=== PATIENT | male | born 1955 | race Caucasian/White ===

== ENCOUNTER 2024-07-06 14:53 | Observation (INO) | payer MEDICARE ==
[2024-07-06] MEDS ORDERED: Sodium Chloride 0.9% 10 ML Syringe FLUSH PRN (15:05)
[2024-07-06 15:09] LABS: BASOPHILS ABSOLUTE AUTO 0.01 K/uL (0.00-0.20); BASOPHILS PERCENT AUTO 0.2 % (0.0-2.0); EOSINOPHILS ABSOLUTE AUTO 0.03 K/uL (0.00-0.50); EOSINOPHILS PERCENT AUTO 0.7 % (0.0-5.0); HEMATOCRIT 41.8 % (39.0-49.0); HEMOGLOBIN 14.4 g/dL (13.1-16.8); IMMATURE GRAN ABSOLUTE AUTO 0.01 10^3/uL (0.00-0.04); IMMATURE GRAN PERCENT AUTO 0.2 % (0.0-0.4); LYMPHOCYTES ABSOLUTE AUTO 1.32 K/uL (0.50-3.50); LYMPHOCYTES PERCENT AUTO 30.9 % (10.0-50.0); MEAN CORPUSCULAR HEMOGLOBIN 31.9 pg (28.2-33.3); MEAN CORPUSCULAR HGB CONC 34.4 g/dL (31.7-36.0); MEAN CORPUSCULAR VOLUME 92.7 fL (84.0-98.0); MONOCYTES ABSOLUTE AUTO 0.56 K/uL (0.00-1.00); MONOCYTES PERCENT AUTO 13.1 % (2.0-14.0); NEUTROPHILS ABSOLUTE AUTO 2.34 K/uL (1.40-7.00); NEUTROPHILS PERCENT AUTO 54.9 % (45.0-80.0); PLATELET COUNT,PLT 113 K/uL (150-350); RED BLOOD CELL COUNT 4.51 M/uL (4.33-5.41); RED CELL DISTRIBUTION WIDTH 12.6 % (11.2-14.1); WHITE BLOOD CELL COUNT,WBC 4.3 K/uL (4.0-10.2)
[2024-07-06 15:36] LABS: ALBUMIN 3.5 g/dL (3.4-5.0); ANION GAP 16.3 meq/L (7-15); BILIRUBIN TOTAL 0.4 mg/dL (0.2-1.0); CALCIUM 8.1 mg/dL (8.5-10.1); CARBON DIOXIDE,CO2 21.7 mmol/L (21.0-32.0); CREATININE 1.05 mg/dL (0.51-1.17); EST CRCL DRUG DOSING (CG) 69.72 mL/min; POTASSIUM,K 3.6 mmol/L (3.5-5.1); PROTEIN TOTAL,TP 6.6 g/dL (6.4-8.2)
[2024-07-06] MEDS: Lactated Ringers 1,000 ML IV ONE (16:42)
[2024-07-06] MEDS: Ondansetron 4 MG/2 ML SDV IVPUSH ONE (16:42)
[2024-07-06] MEDS: Meclizine 25 MG Tab PO ONE (17:11)
[2024-07-06] MEDS ORDERED: Potassium Chloride 20 MEQ Tab.ER PO ONE (18:22)
[2024-07-06] MEDS ORDERED: Ondansetron 4 MG/2 ML SDV IVPUSH PRN (19:10)
[2024-07-06] MEDS ORDERED: Polyethylene Glycol 3350 Powder 17 GM Packet PO PRN (19:10)
[2024-07-06] MEDS: Rosuvastatin 10 MG Tab PO SCH (19:47)
[2024-07-06] MEDS: Ezetimibe 10 MG Tab PO SCH (19:48)
[2024-07-06] MEDS: guaiFENesin 600 MG Tab.ER PO SCH (19:48)
[2024-07-06] MEDS: Oseltamivir 75 MG Cap PO SCH (19:48)
[2024-07-06] MEDS: Losartan 50 MG Tab PO SCH ×2 (19:48→21:11)
[2024-07-06] MEDS: Aspirin 81 MG Tab.EC PO SCH (19:49)
[2024-07-06] MEDS: Metoprolol Succinate 25 MG Tab.ER PO SCH (19:49)
[2024-07-06] MEDS: Non-Formulary Medication 1 Each (Amlodipine [Norvasc] 2.5 MG Tablet) PO SCH (19:50)
[2024-07-06] MEDS: Non-Formulary Medication 1 Each (Omeprazole [Omeprazole] 20 MG Cap.Cr) PO SCH (19:50)
[2024-07-06] MEDS ORDERED: AMLODIPINE 2.5 MG PO SCH (20:00)
[2024-07-06] MEDS ORDERED: Meclizine 25 MG Tab PO PRN (20:12)
[2024-07-06] MEDS: Pantoprazole 40 MG Tab.CR PO SCH (20:12)
[2024-07-07 07:29] LABS: BASOPHILS ABSOLUTE AUTO 0.01 K/uL (0.00-0.20); BASOPHILS PERCENT AUTO 0.2 % (0.0-2.0); EOSINOPHILS ABSOLUTE AUTO 0.05 K/uL (0.00-0.50); EOSINOPHILS PERCENT AUTO 0.9 % (0.0-5.0); HEMATOCRIT 40.6 % (39.0-49.0); HEMOGLOBIN 13.8 g/dL (13.1-16.8); IMMATURE GRAN ABSOLUTE AUTO 0.01 10^3/uL (0.00-0.04); IMMATURE GRAN PERCENT AUTO 0.2 % (0.0-0.4); LYMPHOCYTES ABSOLUTE AUTO 1.39 K/uL (0.50-3.50); LYMPHOCYTES PERCENT AUTO 24.1 % (10.0-50.0); MEAN CORPUSCULAR HEMOGLOBIN 31.9 pg (28.2-33.3); MEAN CORPUSCULAR VOLUME 93.8 fL (84.0-98.0); MONOCYTES ABSOLUTE AUTO 0.57 K/uL (0.00-1.00); MONOCYTES PERCENT AUTO 9.9 % (2.0-14.0); NEUTROPHILS ABSOLUTE AUTO 3.74 K/uL (1.40-7.00); NEUTROPHILS PERCENT AUTO 64.7 % (45.0-80.0); PLATELET COUNT,PLT 113 K/uL (150-350); RED BLOOD CELL COUNT 4.33 M/uL (4.33-5.41); RED CELL DISTRIBUTION WIDTH 12.6 % (11.2-14.1); WHITE BLOOD CELL COUNT,WBC 5.8 K/uL (4.0-10.2)
[2024-07-07 07:48] VITALS: BP 113/83; PULSE 67
[2024-07-07] MEDS: Acetaminophen 325 MG Tab PO PRN (07:54)
[2024-07-07 08:05] LABS: ANION GAP 11.2 meq/L (7-15); CALCIUM 8.1 mg/dL (8.5-10.1); CARBON DIOXIDE,CO2 24.8 mmol/L (21.0-32.0); CREATININE 0.91 mg/dL (0.51-1.17); EST CRCL DRUG DOSING (CG) 80.45 mL/min; POTASSIUM,K 3.9 mmol/L (3.5-5.1)
[2024-07-07] MEDS: Take Home: Oseltamivir Phosphate 75 MG, 6 Cap Pack PO ONE (09:54)
[2024-07-07] MEDS: Take Home: Benzonatate 100 MG, 6 Cap Pack PO ONE (10:17)
[2024-07-07] MEDS: Take Home: Meclizine HCl 25 MG, 6 Tab Pack PO ONE (10:18)
== END 2024-07-07 11:55 | disposition home or self-care (01) ==
LOC: SUPCPDRO 14:53 → LL.ED 14:53 → LL.MS 17:14 → UNDOADMOB 17:14 → LL.MS 19:10 → UNDODISOB 07-07 11:55
PROVIDERS: ADMIT Physician Assistant; ATTEND Physician Assistant
DX: J10.1 Influenza due to other identified influenza virus with other respiratory manifestations (principal); I44.0 Atrioventricular block, first degree; I10 Essential (primary) hypertension; E78.00 Pure hypercholesterolemia, unspecified; I71.23 Aneurysm of the descending thoracic aorta, without rupture; Z95.2 Presence of prosthetic heart valve; Z79.82 Long term (current) use of aspirin; Z79.899 Other long term (current) drug therapy
CPT/HCPCS: 36415; 70450; 71046; 80048; 80053; 83880; 84484; 85025; 87428-QW; 93005; 93010; 94761; 96361; 96374; 99223; 99239; 99285-25; A9270-GY; J2405; J7120

== ENCOUNTER 2025-02-14 10:20 | Day surgery (SDC) | payer MEDICARE ==
[~2025-02-14 10:20] MED LIST: Midazolam 1 MG/ML 2 ML SDV ONE; Propofol 200 MG/20 ML SDV ONE; Sodium Chloride 0.9% 10 ML Syringe FLUSH PRN
[2025-02-14] MEDS: Lactated Ringers 1,000 ML IV SCH (10:46)
[2025-02-14 11:58] VITALS: BP 113/77; PULSE 70
== END 2025-02-14 12:25 | disposition home or self-care (01) ==
LOC: LL.SDS 10:20
PROVIDERS: ATTEND Surgery
DX: Z12.11 Encounter for screening for malignant neoplasm of colon (principal); D12.2 Benign neoplasm of ascending colon; D12.8 Benign neoplasm of rectum; K57.30 Diverticulosis of large intestine without perforation or abscess without bleeding; I10 Essential (primary) hypertension; K21.9 Gastro-esophageal reflux disease without esophagitis; Z86.0100 Personal history of colon polyps, unspecified
CPT/HCPCS: 00811; 45385; J2250; J2704; J7120